=== PATIENT | male | born 1955 | race Caucasian/White ===

== ENCOUNTER 2018-01-26 10:21 | Emergency (ER) | payer OTHER ==
[~2018-01-26] VITALS: Ht 182.9 cm; Wt 181.4 kg
[~2018-01-26 10:21] MED LIST: ASPIRIN EC81 M1 PO; ATORVASTATIN CA40 M1 PO; COZAAR100 M1 PO; LABETALOL HCL200 M1 PO; LOSARTAN-HCTZ1 EAC2 PO; ZOLPIDEM TARTRA10 M1 PO
[2018-01-26 11:58] LABS: ABSOLUTE BASOPHIL COUNT 0.1 /CUMM (0.0-0.2); ABSOLUTE EOSINOPHIL COUNT 0.5 /CUMM (0.0-0.7); ABSOLUTE GRANULOCYTE CT 7.2 /CUMM (1.4-6.5); ABSOLUTE LYMPH COUNT 2.1 /CUMM (1.2-3.4); ABSOLUTE MONOCYTE COUNT 0.7 /CUMM (0.10-0.60); BASOPHIL % 0.7 % (0.0-2.0); EOSINOPHIL % 4.9 % (0-5); GRANULOCYTE % 68.3 % (42.2-75.2); HEMATOCRIT 35.1 % (42-52); MEAN CORPUSCULAR HGB 30.7 PG (27.0-31.0); MEAN CORPUSCULAR HGB CONC 34.1 G/DL (33.0-37.0); MEAN PLATELET VOLUME 8.1 FL (7.4-10.4); PLATELET COUNT 235 /CUMM (130-400); RBC DISTRIBUTION WIDTH 13.9 % (11.5-14.5); WHITE BLOOD CELL COUNT 10.5 /CUMM (4.8-10.8)
--- NOTE | 2018-01-26 12:17 | CT SCAN REPORT ---
EXAMINATION: CT ABDOMEN AND PELVIS WITHOUT CONTRAST CLINICAL INFORMATION: Lower abdominal pain. COMPARISON: None. TECHNIQUE: Multidetector volumetric imaging was performed from the superior aspect of the liver through the pubic symphysis. Sagittal and coronal reformatted images were obtained on the technologist workstation. DLP: 1812.78 mGy-cm. FINDINGS: LUNG BASES: There is a 4 mm densely calcified granuloma in the lingula (series 2, image 5). The lung bases are otherwise unremarkable. LIVER, GALLBLADDER, AND BILIARY TREE: The liver is normal in size. There is relative atrophy of the right lobe and hypertrophy of the lateral segment and caudate lobe and liver parenchymal attenuation is heterogeneous, which is likely at least in part related to beam hardening artifact from skin contact with the gantry. The liver contour is not nodular. No focal hepatic lesion on noncontrast imaging. No biliary ductal dilatation is present. The gallbladder is partially distended and demonstrates heterogeneous luminal hyperdensity, perhaps related to subtle milk of calcium versus partially calcified gallstones within the gallbladder. No gallbladder wall thickening, or obvious pericholecystic inflammatory changes. PANCREAS: There is fatty infiltration in the pancreatic head. Remainder of pancreas mildly atrophic but otherwise unremarkable. No pancreatic ductal dilatation or peripancreatic edema/stranding. No definite mass on noncontrast imaging. SPLEEN, ADRENAL GLANDS: Unremarkable on noncontrast imaging. KIDNEYS AND URETERS: There is moderate left-sided hydroureteronephrosis due to an obstructing 1.2 x 1.0 cm densely calcified stone with mean attenuation values of 964 Hounsfield units in the proximal left ureter at the level of the L2-3 disc space. The ureter distal to this calcification is decompressed and no additional left ureteral calculi are noted. The shortest distance from this calcification to the posterior skin surface is 21.4 cm. No significant left-sided perinephric or periureteric stranding or edema is seen. There is a partially exophytic 3.9 x 3.5 cm low-attenuation mass in the upper pole of the right kidney (series 2, image 23), consistent with a cyst. The right kidney is otherwise unremarkable. BLADDER: Partially distended and grossly unremarkable. No bladder calculi. PELVIC VISCERA: Unremarkable. GASTROINTESTINAL TRACT: There is moderate sigmoid and distal descending colonic diverticulosis with no evidence of acute diverticulitis. Remainder of the colon is decompressed and unremarkable. Terminal ileum and small bowel loops are decompressed and unremarkable. The appendix is normal. ABDOMINAL WALL: There is a tiny fat-containing umbilical hernia. LYMPH NODES, VASCULAR: Mild atherosclerotic calcifications of the abdominal aorta and branch vessels. Aorta normal caliber. No periaortic collections. No significant abdominal or pelvic adenopathy is seen. OSSEOUS STRUCTURES: Moderate to severe degenerative disc disease and vertebral spondylosis seen in the lower thoracic and upper lumbar spine and at the lumbosacral junction, where a small posterior disc osteophyte complex is seen projecting into the spinal canal without significant spinal stenosis. Moderate facet arthropathy seen in the mid and lower lumbar spine. IMPRESSION: 1. Moderate left-sided hydroureteronephrosis due to an obstructing 1.2 x 1.0 cm calcification (likely a calcium phosphate stone) in the proximal left ureter at the L2-3 disc space level. 2. No additional renal, ureteral or bladder calculi seen. 3. Heterogeneous liver parenchyma, likely at least in part related to beam hardening artifact. Correlation with liver function tests is requested. 4. Probable milk of calcium versus faintly calcified gallstones within the gallbladder. 5. Upper pole right renal cyst. 6. Moderate colonic diverticulosis. 7. Small calcified granuloma in the lingula. 8. Tiny fat-containing umbilical hernia.
[2018-01-26] MEDS ORDERED: ROPINIROLE HCL0.5 MG PO (15:23)
[2018-01-26] MEDS ORDERED: IBUPROFEN800 M1 PO (15:23)
[2018-01-26] MEDS ORDERED: ATORVASTATIN CA20 M1 PO (15:23)
[2018-01-26] MEDS ORDERED: LATANOPROST2.5 ML OPH (15:23)
--- NOTE | 2018-01-26 15:36 | ED GENERAL ADULT ---
History of Present Illness General Chief Complaint: Abdominal Pain/Flank Pain Stated Complaint: ABD PAIN XS 4 DAYS Source: patient Exam Limitations: no limitations Vital Signs & Intake/Output Vital Signs & Intake/Output Vital Signs Date Time Temp Pulse Resp B/P B/P Pulse O2 O2 Flow FiO2 Mean Ox Delivery Rate 01/26 1611 82 20 126/75 95 Room Air 01/26 1509 Room Air 01/26 1434 98.0 80 22 132/83 94 Room Air 01/26 1259 97.2 84 20 120/69 96 Room Air 01/26 1028 97.4 79 20 115/79 97 Room Air ED Intake and Output 01/27 0000 01/26 1200 Intake Total 1000 Output Total Balance 1000 Intake, IV 1000 Patient 400 lb Weight Weight Estimated Measurement Method Allergies Coded Allergies: NO KNOWN ALLERGIES (12/29/15) Reconcile Medications Atorvastatin Calcium 20 MG TABLET 1 TAB PO DAILY CHOLESTEROL (Reported) Ciprofloxacin HCl (Cipro) 500 MG TABLET 1 TAB PO BID infected kidney stone Ibuprofen 800 MG TABLET 1 TAB PO BID PAIN (Reported) Labetalol HCl 200 MG TABLET 1 TAB PO BID HTN (Reported) Latanoprost 0.005 % DROPS 1 GTT OPH QPM EYE (Reported) Losartan (Cozaar) 100 MG TABLET 1 TAB PO DAILY HTN Ropinirole HCl 0.5 MG TABLET 1 TAB PO QPM RESTLESS LEGS (Reported) Triage Note: PT TO ED C/O ABD PAIN "ON AND OFF" SINCE WEDNESDAY. RADIATES FROM RIGHT SIDE TO LEFT SIDE. HAS TRIED OTC MEDS WITH NO RELIEF. DENIES S/S. DENIES N/V/D. Triage Nurses Notes Reviewed? yes HPI: 62 yo M with a pmhx sig for kidney stones, gall stones, morbid obesity presents to the ED with abdominal pain across his BL upper quadrants and left flank. Intermittent. No f/ch/n/v/diarrhea/urinary sx. No hematuria. No chest pain or shortness of breath. (Oralia ANTONIO,Humberto) Past History Travel History Traveled to [place] past 21 day No Medical History Any Pertinent Medical History? see below for history Neurological: NONE EENT: NONE Cardiovascular: hypertension Respiratory: NONE Gastrointestinal: NONE Hepatic: NONE Renal: NONE Musculoskeletal: osteoarthritis Psychiatric: NONE Endocrine: NONE Blood Disorders: NONE Cancer(s): NONE TUBE WASHER/Reproductive: NONE Surgical History Surgical History: TENDON REPAIR Psychosocial History Who do you live with Patient/Self Services at Home None What is your primary language [place] Tobacco Use: Never used ETOH Use: denies use Illicit Drug Use: denies illicit drug use Family History Family History, If Any: MOTHER Leukemia Relation not specified for: Coronary artery disease in father Stroke or transient ischemic attack in father Hx Contributory? No (Humberto Barton MD) Review of Systems Review of Systems Constitutional: Denies: chills, fever. GI: Reports: abdominal pain. Denies: diarrhea, nausea, vomiting. Genitourinary: Denies: dysuria, frequency, hematuria, urgency. Skin: Denies: no symptoms. All Other Systems: Reviewed and Negative (Humberto Barton MD) Physical Exam Physical Exam General Appearance: well developed/nourished, no apparent distress, alert, awake Respiratory: normal breath sounds, chest non-tender, lungs clear, decreased breath sounds Cardiovascular: regular rate/rhythm Gastrointestinal: soft, non-tender, morbidly obese Neurologic/Psych: awake, alert, oriented x 3 Core Measures ACS in differential dx? No CVA/TIA Diagnosis: No Sepsis Present: No Sepsis Focused Exam Completed? No (Humberto Barton MD) Progress Differential Diagnoses I considered the following diagnoses in my evaluation of the patient: appewndiciits, cholecysitits, UTI, stone, pancreatitis Plan of Care: Orders Procedure Date/time Status Add-on Test (ER Only) 01/26 1919 Active CULTURE,URINE 01/26 175 Active URINALYSIS 01/26 1042 Complete LIPASE 01/26 1042 Complete COMPREHENSIVE METABOLIC PANEL 01/26 1042 Complete CBC WITHOUT DIFFERENTIAL 01/26 1042 Complete Laboratory Tests 01/26/18 1527: Urine Color YEL, Urine Clarity CLEAR, Urine pH 5.0, Ur Specific [place] >= 1.030 , Urine Protein NEG, Urine Ketones NEG, Urine Nitrite NEG, Urine Bilirubin NEG, Urine Urobilinogen 0.2, Ur Leukocyte Esterase TRACE H, Ur Microscopic SEDIMENT EXAMINED, Urine RBC RARE, Urine WBC 3-5 H, Ur Epithelial Cells FEW, Urine Bacteria RARE H, Urine Hemoglobin NEG, Urine Glucose NEG 01/26/18 1120: Anion Gap 8, Estimated GFR > 60, BUN/Creatinine Ratio 15.5, Glucose 118 H, Calcium 9.3, Total Bilirubin 0.6, AST 20, ALT 27, Alkaline Phosphatase 104, Total Protein 6.9, Albumin 3.4 L, Globulin 3.5, Albumin/Globulin Ratio 1.0 L, Lipase 106, CBC w Diff NO MAN DIFF REQ, RBC 3.90 L, MCV 90.0, MCH 30.7, MCHC 34.1, RDW 13.9, MPV 8.1, Gran % 68.3, Lymphocytes % 19.6 L, Monocytes % 6.5, Eosinophils % 4.9, Basophils % 0.7, Absolute Granulocytes 7.2 H, Absolute Lymphocytes 2.1, Absolute Monocytes 0.7 H, Absolute Eosinophils 0.5, Absolute Basophils 0.1 Microbiology 01/26 1527 URINE ROUT: Urine Culture - RECD Initial ED EKG: none Comments: HPI as above. Flank pain with upper abdominal pain. CT scan shows obstructing >1cm stone Hx of gallstone. Will obtain RUQ US to ro garcía. Cholelithiasisi without cholecystitis Recent cath and stress test negative for CAD for pre-op clearance decreases concern for ACS. Spoke wtih Dr. Naranjo about presentation, equivocal UA with obstructing stone. Patient to get ceftriaxone IV, cipro PO as OP and call for procedure this Wednesday. Patietn amenable to plan and understands. Strict return precatuions for n/v/f/ch/worsening pain. (Humberto Barton MD) Departure Departure Disposition: HOME OR SELF CARE Condition: Stable Clinical Impression Primary Impression: Kidney stone Secondary Impressions: Urinary (tract) obstruction, Urinary tract infection Referrals: Joy Judd MD (PCP/Family) Departure Forms: Customer Survey General Discharge Information Prescriptions: Current Visit Scripts Ciprofloxacin HCl (Cipro) 1 TAB PO BID #20 TAB (Humberto Barton MD) PA/ART CONSERVATOR Co-Sign Statement Statement: ED Attending supervision documentation- I saw and evaluated the patient. I have also reviewed all the pertinent lab results and diagnostic results. I agree with the findings and the plan of care as documented in the PA's/ART CONSERVATOR's documentation. x I have reviewed the ED Record and agree with the PA's/ART CONSERVATOR's documentation. [] Additions or exceptions (if any) to the PAs/ART CONSERVATOR's note and plan are summarized below: [] (Talib ANTONIO,Arthur) Critical Care Note Critical Care Note Critical Care Time: non-applicable (Humberto Barton MD)
[2018-01-26 16:11] VITALS: BP 126/75
--- NOTE | 2018-01-26 16:49 | ULTRASOUND REPORT ---
EXAMINATION: US ABDOMEN LIMITED CLINICAL INFORMATION: Right upper quadrant pain.. COMPARISON: Abdominal CT performed earlier the same day. TECHNIQUE: Real-time imaging of the right upper quadrant abdominal viscera. FINDINGS: PANCREAS: Normal. LIVER: Nondiagnostic assessment of the right lobe of the liver secondary to obscuring bowel gas. No focal liver lesions. GALLBLADDER: Wall echo shadow sign suggesting underlying gallstones. No pericholecystic fluid. No gallbladder wall thickening. COMMON BILE DUCT: Normal in caliber measuring 0.3 cm in diameter. RIGHT KIDNEY: The right kidney measures 11.8 cm in sagittal dimension. No hydronephrosis. No focal lesions. FREE FLUID: None. IMPRESSION: - Sonographic findings suggest cholelithiasis without sonographic evidence of acute cholecystitis. - Nondiagnostic assessment of the liver and right kidney secondary to obscuring bowel gas.
[2018-01-26] MEDS ORDERED: CIPRO500 M1 PO (19:24)
== END 2018-01-26 19:30 ==
LOC: ERH 10:21
PROVIDERS: Physician Assistant Medical
DX: N20.0 Calculus of kidney (principal); N13.9 Obstructive and reflux uropathy, unspecified; N39.0 Urinary tract infection, site not specified; I10 Essential (primary) hypertension
CPT/HCPCS: 74176; 81001; 87086; 96361; 96374; J0696

== ENCOUNTER → 2018-01-28 | Day surgery (SDC) | payer OTHER ==
[~2018-01-28] MED LIST changes: +ATORVASTATIN CA20 M1 PO; +CIPRO500 M1 PO; +IBUPROFEN800 M1 PO; +LATANOPROST2.5 ML OPH; +ROPINIROLE HCL0.5 MG PO
--- NOTE | 2018-01-28 13:34 | Operative Report ---
Operative/Inv Procedure Report Surgery Date: 01/28/18 Name of Procedure: Left ureteroscopy with laser lithotripsy and stone extraction, retrograde pyelogram and stent placement Pre-Operative Diagnosis: Left UPJ stone 1.2cm 900+ HU on CT Post-Operative Diagnosis: Same Estimated Blood Loss: scant Surgeon/Technical Lead: Rachael Naranjo MD Anesthesia: laryngeal mask airway Drains: 6 x 28 cm ureteral stent Specimens: Stone fragments Complications: None Condition: Stable Operative Indication: Left renal UPJ stone with hydronephrosis Operative/Procedure Note Note: The 62-year-old male who presented to the [facility] ER on Wednesday with renal colic. CT scan revealed a left UPJ stone greater than a centimeter with some hydronephrosis. He already had medical clearance for cholecystectomy in the near future and was counseled about having the ureteroscopy to treat the stone. Patient wished to proceed. He was given the risks benefits and alternatives in the holding area and all questions were answered. Consent was signed. The left hand was marked. Patient was taken to the operating placed on the operating table in supine position. Timeout was performed. IV antibiotics were infused. Patient was placed in the dorsolithotomy position and prepped and draped in the standard sterile fashion. Given his morbidly obese status it was very difficult to position the patient and ultimately made the surgery difficult. Cystoscopy was performed and bladder was globally inspected. The ureteral orifices were easily identified. The left ureteral orifice was cannulated with a Solo Bard guidewire followed by dual-lumen catheter and a Superstiff Amplatz wire. The superstiff Amplatz wire was used to place a ureteral access sheath 35 cm in length with the inner sheath first then followed by the inner and outer sheath together. The inner sheath and the superstiff wire were removed. The digital flexible ureteroscope was then used to laser the UPJ stone that was easily identified at the UPJ. This was fragmented with the 365um sized laser fiber and later in the case with a 278um fiber. The fragments were basketed and removed. A retrograde pyelogram was performed and no extravasation was present. The remaining wire was then used to place a 6 x 28 cm ureteral stent. This was done without difficulty using the cystoscope. Bladder was emptied. Stone fragments were sent for analysis. Patient tolerated procedure well. He was cleaned of the Betadine solution. He was transferred to recovery room stable condition. Findings: UPJ stone very large hard in consistency no extravasation Discharge Disposition: PACU
--- NOTE | 2018-01-31 17:38 | RADIOLOGY REPORT ---
EXAMINATION: CR ABDOMEN/INTRAOPERATIVE FLUOROSCOPY CLINICAL INDICATION: Left ureteroscopy and left stent placement. COMPARISON: Right upper quadrant ultrasound dated 01/26/2018. Abdominal ultrasound dated 01/26/2018. TECHNIQUE/FINDINGS: Fluoroscopic equipment was dedicated to the operating room for the performance of an intraoperative procedure. Several (19) spot films were acquired and are archived in PACS. Please refer to operative notes for procedural detail. FLUOROSCOPY TIME: 20 seconds. IMPRESSION: Administrative dictation for intraoperative fluoroscopy and image archiving in PACS. Please refer to operative notes for details.
== END ==
LOC: STS 03:21
DX: N13.2 Hydronephrosis with renal and ureteral calculous obstruction (principal); I10 Essential (primary) hypertension; E66.9 Obesity, unspecified; E03.9 Hypothyroidism, unspecified; M19.90 Unspecified osteoarthritis, unspecified site; I25.10 Atherosclerotic heart disease of native coronary artery without angina pectoris
CPT/HCPCS: 76000; C2617; J0131; J0690; J2250